=== PATIENT | male | born 1985 | race Caucasian/White ===

== ENCOUNTER 2019-09-05 21:28 | Emergency (ER) | payer SELFPAY ==
[2019-09-05] MEDS ORDERED: HYDROmorphone 0.5 MG/0.5 ML Syringe IM ONE (22:37)
[2019-09-05] MEDS ORDERED: Amoxicillin/Clavulanate K 875-125 MG Tab PO ONE (22:38)
[2019-09-05] MEDS ORDERED: Ondansetron 4 MG Tab.DIS PO ONE (22:38)
--- NOTE | 2019-09-05 22:45 | EDM.PDOC ---
ED HPI GENERAL MEDICAL PROBLEM - General Chief Complaint: ENT Problem Stated Complaint: TOOTH PAIN Time Seen by Provider: 09/05/19 22:19 Source of Information: Reports: Patient, RN Notes Reviewed, Significant Other ( ) History Limitations: Reports: No Limitations - History of Present Illness INITIAL COMMENTS - FREE TEXT/NARRATIVE: Patient is a 33-year-old male who presents to the ED for the evaluation of a dental complaint. Patient states that promptly around 6 PM today, he had some numbness in his left side of his face, and then developed pain into his left upper molar and left lower molar. Pain does prohibit him to talk much or open his jaw. He states he is not having a lot of difficulty swallowing, he has no sore throat, no fevers no chills no nausea no vomiting no diarrhea. He does not take any regular medications, nor does he relate any past medical history. Patient states he took 4 tablets of ibuprofen at around 8 PM for the pain and this did not help too much. Patient does not see a regular provider, nor does he have a regular dentist that he sees. Left Upper Tooth/Teeth Pain Score (Numeric/FACES): 10 - Related Data Allergies Allergy/AdvReac Type Severity Reaction Status Date / Time No Known Allergies Allergy Verified 09/05/19 22:21 Home Meds: Home Meds Amoxicillin/Clavulanate K [Augmentin 875-125 MG] 1 tab PO BID #13 tablet [Rx] Naproxen [Naprosyn] 500 mg PO Q12HR #14 tab 09/05/19 [Rx] Past Medical History - Past Health History Medical/Surgical History: Denies Medical/Surgical History Social & Family History - Tobacco Use Smoking Status *Q: Current Some Day Smoker Tobacco Use Within Last Twelve Months: Cigarettes Years of Tobacco use: 1 Packs/Tins Daily: 0.5 - Caffeine Use Caffeine Use: Reports: Coffee, Energy Drinks, Soda, Tea - Recreational Drug Use Recreational Drug Use: No ED ROS ENT - Review of Systems Review Of Systems: Comprehensive ROS is negative, except as noted in HPI. ED EXAM, ENT - Physical Exam Exam: See Below Exam Limited By: No Limitations General Appearance: Alert, WD/WN, No Apparent Distress Ears: Normal External Exam, Normal Canal, Hearing Grossly Normal, Normal TMs Nose: Normal Inspection Mouth/Throat: Normal Inspection, Normal Gums, Normal Lips, Normal Oropharynx, Dental Pain (To left upper molar and left lower molar, there is mild redness noted at the gumline. Dentition is in pretty poor repair throughout his mouth. Multiple fillings noted.) Head: Atraumatic, Normocephalic Neck: Normal Inspection, Supple, Non-Tender Respiratory/Chest: No Respiratory Distress, Lungs Clear, Normal Breath Sounds, No Accessory Muscle Use, Chest Non-Tender Cardiovascular: Normal Peripheral Pulses, Regular Rate, Rhythm, No Murmur Extremities: Normal Inspection, Normal Capillary Refill Neurological: Alert, Oriented, Normal Cognition, No Motor/Sensory Deficits Psychiatric: Normal Affect, Normal Mood Skin: Warm, Dry, Intact, Normal Color, No Rash Course - Vital Signs Last Recorded V/S: Last Vital Signs Temp 98.0 F 09/05/19 22:16 Pulse 73 09/05/19 22:16 Resp 16 09/05/19 22:16 BP 124/84 09/05/19 22:16 Pulse Ox 97 09/05/19 22:16 - Orders/Labs/Meds Meds: Medications Discontinued Medications Generic Name Dose Route Start Last Admin Trade Name Katherine PRN Reason Stop Dose Admin Amoxicillin/Clavulanate Potassium 1 tab 09/05/19 22:38 Augmentin 875 Mg/125 Mg PO 09/05/19 22:39 ONETIME ONE Hydromorphone HCl 0.5 mg 09/05/19 22:37 Dilaudid IM 09/05/19 22:38 ONETIME ONE Ondansetron HCl 4 mg 09/05/19 22:38 Zofran Odt PO 09/05/19 22:39 ONETIME ONE - Re-Assessments/Exams Free Text/Narrative Re-Assessment/Exam: 09/05/19 22:43 Patient presents to the ED for evaluation of his dental pain. I did order 0.5 mg IM Dilaudid for pain management tonight, and the start of Augmentin antibiotic. Patient will be given a prescription for continuation of the antibiotic and some Naprosyn he can miner pick tomorrow and take as directed. Departure - Departure Time of Disposition: 22:44 Disposition: Home, Self-Care 01 Condition: Fair Clinical Impression: Pain, dental - Discharge Information *PRESCRIPTION DRUG MONITORING PROGRAM REVIEWED*: No *COPY OF PRESCRIPTION DRUG MONITORING REPORT IN PATIENT PRATIBHA: No Instructions: Diet and Dental Disease Referrals: PCP,None [Primary Care Provider] - Additional Instructions: You have been evaluated in the ED for your dental pain. You have been provided with a script for Augmentin. This was electronically sent to the [facility] located on [address]. Please take this medication as directed. (1 tab twice daily for 7 days or until gone). This antibiotic can cause diarrhea, recommend that you start a probiotic while taking this medication. You were given a prescription for Naprosyn, Please take 1 tab every 12 hours for pain relief. You may use hot pack/ ice packs to the affected area as tolerated in 15-20 minute intervals. You will ultimately need to find a dentist to provide definitive management of your dental pain. The [facility] in [place], [place], , is a clinic that has been known to take people that do not have dental insurance, and may provide payment plans. You might want to check with this provider, regarding your dental pain. Please return to the ED if your symptoms change or worsen. Sepsis Event Note - Evaluation Sepsis Screening Result: No Definite Risk - Focused Exam Vital Signs: Vital Signs Temp Pulse Resp BP Pulse Ox 09/05/19 22:16 98.0 F 73 16 124/84 97 Date Exam was Performed: 09/05/19 Time Exam was Performed: 22:39
== END 2019-09-05 23:01 | disposition home or self-care (01) ==
LOC: JD.ED 21:28
DX: K08.89 Other specified disorders of teeth and supporting structures (principal); K00.7 Teething syndrome; F17.210 Nicotine dependence, cigarettes, uncomplicated
CPT/HCPCS: 96372; 99283; A9270; J1170